=== PATIENT | female | born 2000 | race Two or more races ===

== ENCOUNTER 2023-04-22 18:52 | Emergency (ER) | payer MEDICAID, OTHER ==
[~2023-04-22] VITALS: Ht 152.4 cm; Wt 90.9 kg
[2023-04-22 19:55] VITALS: BP 121/69; PULSE 101; RESP 16; TEMP 97.2; O2SAT 97
[2023-04-22] MEDS ORDERED: ACET500T58 PO (21:29)
[2023-04-22] MEDS ORDERED: CEPH500C PO (21:29)
== END 2023-04-22 22:12 | disposition home or self-care (01) ==
LOC: ER 18:52
DX: S61.216A Laceration without foreign body of right little finger without damage to nail, initial encounter (principal); Z90.49 Acquired absence of other specified parts of digestive tract; Z79.899 Other long term (current) drug therapy; W23.0XXA Caught, crushed, jammed, or pinched between moving objects, initial encounter; Y93.89 Activity, other specified; Y92.89 Other specified places as the place of occurrence of the external cause; Y99.8 Other external cause status
CPT/HCPCS: 12001; 73130